=== PATIENT | female | born 1965 | race Caucasian/White ===

== ENCOUNTER 2025-08-11 10:03 | Emergency (ER) | payer OTHER, SELFPAY ==
[2025-08-11 10:06] VITALS: BP 142/94; PULSE 62; RESP 20; TEMP 36.2; O2SAT 96; BMI 39.8
--- OUTSIDE RECORDS SUMMARY | 2025-08-11 10:07 | XMS_ITS | Clinical Summary ---
Author Organization [facility] Address Formerly [facility] [place] [address] Care Team Providers Care Build And Deployment Engineer Name Role Phone Daksha Devlin NP Primary Care Provider Allergies Active Allergy Reactions Criticality Noted Date Comments Bee Sting Kit Anaphylaxis 08/30/2014 House Dust Cough 08/30/2014 Morphine Cardiac Arrest 08/30/2014 all narcotics she has ever taken Nalbuphine Cardiac Arrest 08/30/2014 Pollen Extracts Cough 08/30/2014 Diazepam Sedation 08/30/2014 would sleep for 5 days , but could arouse her Medications fexofenadine (ADALBERTO) 180 mg tabletIndications: Hayfever Take 1 tablet by mouth once daily. 0 9 Active diclofenac topical (VOLTAREN) 1 % gelIndications:Linda jeff osteoarthritis of right ankle Apply 2 g topically to affected area(s) 4 times daily. 50 g 2 Active famotidine (PEPCID) 20 mg tabletIndications: Chronic GERD Take 1 Tablet (20 mg) by mouth two times daily. 180 Tablet 2 5 Active meloxicam (Mobic) 15 mg tabletIndications: Tibialis posterior tendinitis, right,Primary osteoarthritis of right ankle,Sprain of right medial ankle joint, initial encounter,Calcanea l spur, right foot,Right ankle pain, unspecified chronicity Take 1 Tablet (15 mg) by mouth once daily. 90 Tablet 3 5 Active metoprolol tartrate (LOPRESSOR) 25 mg tabletIndications: Paroxysmal SVT (supraventricular tachycardia) (HC),Aortic root dilation TAKE THREE TABLETS BY MOUTH TWICE A DAY 540 Tablet 3 5 Active topiramate 50 mg tabletIndications: Migraine syndrome Take 1 Tablet (50 mg) by mouth two times daily. 180 Tablet 3 5 Active fluconazole (DIFLUCAN) 150 mg tabletIndications: Yeast infection Take 1 tab daily, repeat in 3 days 2 Tablet 5 Active cholestyramine-suc tyrese 4 G per scoop (QUESTRAN) 4 gram powderIndications: Bowel habit changes Mix 4 gm in liquid and take by mouth twice daily 250 g 2 5 Active Active Problems Problem Noted Date Diagnosed Date Exacerbation of asthma, unsp ecified asthma severity, unspecified whether persistent 07/03/2025 Aortic root dilation 07/17/2023 Paroxysmal SVT (supraventricular tachycardia) Wheezing 06/19/2023 Overview (06/19/2023): with very cold air Family history of breast cancer 12/11/2020 History of benign breast biopsy 12/11/2020 History of endometriosis Encounters Date Type Department Care Team Description 08/08/2025 12:17 PM CDT - 08/08/2025 11:59 PM CDT Hospital Encounter [facility] [address] [place] [address] Daksha Devlin NP Aortic root dilation 08/08/2025 Travel 07/03/2025 3:30 PM CDT Office Visit [facility] [address] [place] [address] Daksha Devlin NP Medication Management (Medication refills ); Procedure (Echo orders. ); Vaginal Discharge (Vaginal discharge and itching ) 07/03/[address] [address] Daksha Devlin NP Medication Management (cholestyramine-sucr ose 4 G per scoop (QUESTRAN) ) 07/03/2025 Travel 06/09/[address] [address] Daksha Devlin NP Form 06/09/[address] [address] Daksha Devlin NP Appointment from Last 3 Months Immunizations Immunization Administration Dates Next Due COVID-19 vaccine ([employer] 30mcg/0.3mL) P F, MDV 05/06/2021,04/15/2021 Influenza Virus, Unspecified 09/15/2016,08/30/20 13 Influenza, IIV4 10/12/2020,09/25/2018 Td (Age >=7 Years) 12/11/2023 Tdap 07/18/2016,02/01/2007 Family History Medical History Relation Name Comments Allergies Daughter 2 Asthma Daughter 2 Heart failure Father Hypertension Father Cancer Maternal Grandfather liver Heart attack Maternal Grandfather Alzheimer's disease Maternal Grandmother Cancer Maternal Grandmother abdomin al cancer Cancer-breast Mother metastasis Heart Disease Paternal Grandfather Heart attack Paternal Grandfather Brain Aneurysm Paternal Grandmother Asthma Sister 1 Diabetes Sister 1 Hypertension Sister 1 Hypertension Sister 2 Relation Name Status Comments Daughter 1 Alive Daughter 2 Alive Daughter 3 Alive Father Maternal Grandfather (Age 40) Li herlinda Cancer Maternal Grandmother (Age 72) al zheimers Mother (Age 40) Breast Can cer Paternal Grandfather (Age 45) IA Paternal Grandmother (Age 84) Br ain Aneurysm Sister 1 Alive Sister 2 Alive Social History Tobacco Use Types Packs/Day Years Used Date Smoking Tobacco: Former Cigarettes 1 20 1 989 - 2008 Smokeless Tobacco: Never Tobacco Cessation:Counseling Given: Yes Alcohol Use Standard Drinks/Week Comments Yes 0 (1 standard drink = 0.6 oz pur e alcohol) socially PHQ-2 Answer Date Recorded PHQ-2 TOTAL SCORE 0 07/03/2025 Social Connections Answer Date Recorded Do you often feel lonely or isolated from those around you? 0 07/03/2025 Financial Resource Strain Answer Date R ecorded Difficulty of Paying Living Expenses 3 07/03/2025 Difficulty of Paying Living Expenses Not on file 07/03/2025 Food Insecurity Answer Date Recorded Do you worry your food will run out before you are able to buy more? 1 07/03/2025 Transportation Needs Answer Date Record ed Does lack of transportation keep you from medica l appointments? 1 07/03/2025 Does lack of transportation keep you from work, meetings or getting things that you need? 1 07/03/2025 Housing Stability Answer Date Recorded What is your housing situation today? 1 07/03/2025 Utilities Answer Date Recorded Do you have trouble paying f or utilities (for example, heat, electricity, water, phone)? 1 07/03/2025 Comments No Sex and Gender Information Value Date Recorded Sex Assigned at Not on file Legal Sex Female 5:23 AM SENIOR RISK ANALYST Gender Identity Not on file Sexual Orientation Not on file Obstetrics History Para Term AB IAB SAB Ectopic Multiple Livin g Live Births 4 3 3 1 1 Date Outcome GA Total Labor Labor/2nd/3rd Weight Sex Type Anes PTL Mary A1 A5 Name Clin Term Term Term SAB Last Filed Vital Signs Vital Sign Reading Time Taken Comments Blood Pressure 110/74 07/03/2025 3:30 PM CDT Pulse 64 07/03/2025 3:30 PM CDT Temperature 36.9 C (98.4 F) 01/26/2024 2:31 PM SENIOR RISK ANALYST Respiratory Rate 18 09/20/2024 9:37 AM CDT Oxygen Saturation 95% 01/26/2024 2:31 PM SENIOR RISK ANALYST Inhaled Oxygen Concentration - - Weight 110.8 kg (244 lb 3.2 oz) 07/03/2025 3:30 PM CDT Height 162.6 cm (5' 4) 07/03/2025 3:30 PM CDT Body Mass Index 41.92 07/03/2025 3:30 PM CDT Plan of Treatment Upcoming Encounters Date Type Department Care Team (Late st Contact Info) Description 08/15/2025 2:00 PM CDT Appointment [address] [address] Health Maintenance Due Date Last Done Comments HIV for age 15-65 1981 Hepatitis B series for 19+ ( 1 of 3 - 19+ 3-dose series) 1985 Pneumococcal series for age 50+ (1 of 2 - PCV) 1985 Zoster (shingles) series for age 50+ (1 of 2) [address] (for lung CA) ag e 50-80 12/01/2022 12/01/2021 Mammogram for age 45-75 06/22/2024 06/22/2023, 11/30 COVID-19 vaccine series (3 - 2024- season) 2025 05/06/2021, 04/15/2021 Influenza Vaccine (#1) 2025 , 09/25/2018, 09/15/2016, Additional history exists BMI (ht and wt on same day) for age 18+ 07/03/2026 07/03/2025, 03/08/2024, 01/26/2024, Additional history exists Colonoscopy through age 75 07/25/202607/25, 07/25/2016, 07/25/2016 Depression screening for age 12+ 08/15/2026 08/15/2025, 07/03/2025, 09/29/2023, Additional history exists Lipids for age 45-75 06/19/2028 06/19/2023, 07/18/20 16 Tetanus booster 12/11/2033 12/11/2023, 06/28, 02/01/2007 RSV vaccine for adults or (1 - 1-dose 75+ series) 2041 Hepatitis C screening for ag e 18-79 Completed 06/19/2023 Pap test for age 21-65 Discontinued Procedures Procedure Name Priority Date/Time Associated Diagnosis Comments ECHO TTE COMPLETE WO CONTRAST Routine 08/08/2025 12:59 PM CDT Aortic root dilation XR MAMMO BILAT SCREENING Routine 06/22/2023 4:13 PM CDT Visit for screening mammogram LC HCV ANTIBODY RFX TO QUANT PCR Routine 06/19/2023 3:02 PM CDT Encounter for hepatitis C screening test for low risk patient LIPID PANEL W REFLEX MEASURED LDL Routine 06/19/2023 3:02 PM CDT Lipid screening CT CHEST ABDOMEN PELVIS W STAT 12/01/2021 2:53 PM SENIOR RISK ANALYST Shortness of breath Left lower quadrant abdominal pain COLONOSCOPY SCREENING Routine 07/25/2016 11:14 AM CDT Routine general medical examination at health care facility from Last 3 Months or Most Recently Relevant to Health Maintenance Results * ECHO TTE COMPLETE WO CONTRAST (08/08/2025 12:59 PM CDT) AORTIC VALVE MEAN PG 3 mmHg EJECTION FRACTION 55 % PEAK TR VELOCITY 2.3 m/s LVEDD 4.4 cm EJECTION FRACTION 55 - 60% Anatomical Region Laterality Modality Ultrasound 08/08/2025 12:2 9 PM CDT Narrative 08/08/2025 1:09 PM CDT ECHOCARDIOGRAM ELLEN LINCOLN : 1965 60 years Study Date: 08/08/2025 12:29:40 PM Gender: F BP: 110/74 mmHg Height: 162.56 cm BSA: 2.13 m Weight: 110.68 kg Tech: [facility] Referring MD: DAKSHA DEVLIN Site: [facility] Reading Location: MOBILE OP Patient Location: Outpatient. Procedure: 2D, Color Doppler and Spectral Doppler. Indication for study: Aortic root dilation Cardiac Rhythm: Normal sinus.Study quality: Good. Final Impressions: 1. Normal LV size, normal wall thickness, normal global systolic function with an estimated EF of 55 - 60%. 2. Normal diastolic function. 3. Right ventricular cavity size is normal, global systolic RV function is normal. 4. No significant valve disease detected. 5. Dilated ascending aorta, diameter of 4.3 cm (upper limit of normal for age, sex, and BSA is 3.9 cm*), Height Index 2.63. Comparison Compared to prior exam of 06/27/2024, there has been no significant change. Chamber Sizes and Function Normal left ventricular size, normal wall thickness, normal global systolic function with an estimated EF of 55 - 60%. No resting regional wall motion abnormality visualized. Left atrial size is normal. Left atrial pressure is normal. Right ventricular cavity size is normal, global systolic RV function is normal. RV wall thickness is normal. The right atrium is normal. Right atrial area is 14 cm . The pulmonary artery is of normal size and origin. The sinus of Valsalva is normal for age/sex/bsa. The ascending aorta is dilated. Valves, RV Pressures and Diastolic Function The aortic valve is normal in structure, trileaflet and sclerotic, no stenosis and trivial regurgitation. The mitral valve is sclerotic, mild mitral regurgitation. Mitral annular calcification is present. Normal diastolic function. The tricuspid valve is normal in structure, mild tricuspid regurgitation. The tricuspid regurgitant velocity is 2.3 m/s, the estimated right ventricular systolic pressure is 21 mmHg plus right atrial pressure. The pulmonic valve is normal. Trace pulmonary regurgitation. Masses, Effusion, Shunts There is no pericardial effusion. The inferior vena cava is normal sized, respiratory size variation greater than 50%. No left to right shunting was detected by limited color flow Doppler interrogation of the interatrial septum. MEASUREMENTS AND CALCULATIONS 2-D Measurements and LV Function: LVID (d) 4.4 cm LV FS% (2D) 31 % LVID (s) 3.0 cm LVOT diameter 2.1 cm IVS (d) 0.8 cm HR 70 bpm LVPW (d) 0.9 cm LA Vol index 26 ml/m2 Ao Sinus 3.4 cm RA area 14 cm Ao Sinus ULN 3.8 cm * RV Basal Diam 3.2 cm Asc Ao 4.3 cm RV Mid Diam 2.7 cm Asc Ao ULN 3.9 cm * * Input BSA outside of range, reported values correspond to BSA = 1.9 Diastology: Mitral Tissue Doppler Pulmonary veins E Peak 0.8 m/s e', Septum 0.07 m/s Pulm s 62.6 cm/s A Peak 0.8 m/s e', Lateral 0.15 m/s Pulm d 60.6 cm/s E/A 1.0 E/e' Average 7.44 Pulm s/d ratio 1.03 DT 209 msec Aortic Valve: Vmax 1.2 m/s HORACIO (V) 3.13 cm VTI 0.26 m HORACIO (I) 3.01 cm LVOT V max 1.1 m/s Max PG 5 mmHg LVOT VTI 0.24 m Mean PG 3 mmHg SV 79 ml Dim Index 0.90 SV index 37 ml/m CO 5.5 l/min CI 2.6 l/min/m Mitral Valve: MVA 3.6 cm MV P 1/2 61 msec MV Mean G 1 mmHg Tricuspid Valve and estimated PA pressures: TR Vmax 2.3 m/s TAPSE 1.8 cm TR maxG 21 mmHg Pulmonic Valve: PV Vmax 0.7 m/s PV AT 114 msec . This study was interpreted by an [facility] accredited facility. Final Procedure Note Yaya Jacobsen MD - 08/08/2025 ECHOCARDIOGRAM ELLEN LINCOLN : 1965 60 years Study Date: 08/08/2025 12:29:40 PM Gender: F BP: 110/74 mmHg Height: 162.56 cm BSA: 2.13 m Weight: 110.68 kg Tech: [facility] MD: DAKSHA DEVLIN Site: [facility] Reading Location: MOBILE OP Patient Location: Outpatient. Procedure: 2D, Color Doppler and Spectral Doppler. Indication for study: Aortic root dilation Cardiac Rhythm: Normal sinus.Study quality: Good. Final Impressions: 1. Normal LV size, normal wall thickness, normal global systolic functionwith an estimated EF of 55 - 60%. 2. Normal diastolic function. 3. Right ventricular cavity size is normal, global systolic RV functionis normal. 4. No significant valve disease detected. 5. Dilated ascending aorta, diameter of 4.3 cm (upper limit of normal forage, sex, and BSA is 3.9 cm*), Height Index 2.63. Comparison Compared to prior exam of 06/27/2024, there has been no significantchange. Chamber Sizes and Function Normal left ventricular size, normal wall thickness, normal globalsystolic function with an estimated EF of 55 - 60%. No resting regionalwall motion abnormality visualized. Left atrial size is normal. Leftatrial pressure is normal. Right ventricular cavity size is normal, globalsystolic RV function is normal. RV wall thickness is normal. The rightatrium is normal. Right atrial area is 14 cm . The pulmonary artery is ofnormal size and origin. The sinus of Valsalva is normal for age/sex/bsa.The ascending aorta is dilated. Valves, RV Pressures and Diastolic Function The aortic valve is normal in structure, trileaflet and sclerotic, nostenosis and trivial regurgitation. The mitral valve is sclerotic, mildmitral regurgitation. Mitral annular calcification is present. Normaldiastolic function. The tricuspid valve is normal in structure, mildtricuspid regurgitation. The tricuspid regurgitant velocity is 2.3 m/s,the estimated right ventricular systolic pressure is 21 mmHg plus rightatrial pressure. The pulmonic valve is normal. Trace pulmonaryregurgitation. Masses, Effusion, Shunts There is no pericardial effusion. The inferior vena cava is normal sized,respiratory size variation greater than 50%. No left to right shunting wasdetected by limited color flow Doppler interrogation of the interatrialseptum. MEASUREMENTS AND CALCULATIONS 2-D Measurements and LV Function: LVID (d) 4.4 cm LV FS% (2D) 31% LVID (s) 3.0 cm LVOT diameter2.1 cm IVS (d) 0.8 cm HR 70bpm LVPW (d) 0.9 cm LA Vol index 26ml/m2 Ao Sinus 3.4 cm RA area 14cm Ao Sinus ULN 3.8 cm * RV Basal Diam3.2 cm Asc Ao 4.3 cm RV Mid Diam2.7 cm Asc Ao ULN 3.9 cm * * Input BSA outside of range, reported values correspond to BSA = 1.9 Diastology: Mitral Tissue Doppler Pulmonary veins E Peak 0.8 m/s e', Septum 0.07 m/s Pulm s 62.6 cm/s A Peak 0.8 m/s e', Lateral 0.15 m/s Pulm d 60.6 cm/s E/A 1.0 E/e' Average 7.44 Pulm s/d ratio 1.03 DT 209 msec Aortic Valve: Vmax 1.2 m/s HORACIO (V) 3.13 cm VTI 0.26 m HORACIO (I) 3.01 cm LVOT V max 1.1 m/s Max PG 5 mmHg LVOT VTI 0.24 m Mean PG 3 mmHg SV 79 ml Dim Index 0.90 SV index 37 ml/m CO 5.5 l/min CI 2.6 l/min/m Mitral Valve: MVA 3.6 cm MV P 1/2 61 msec MV Mean G 1 mmHg Tricuspid Valve and estimated PA pressures: TR Vmax 2.3 m/s TAPSE 1.8 cm TR maxG 21 mmHg Pulmonic Valve: PV Vmax 0.7 m/s PV AT 114 msec . This study was interpreted by an [facility] accredited facility. Final Daksha Devlin NP ECHO ORD Final Result * XR MAMMO BILAT SCREENING (06/22/2023 4:13 PM CDT) Anatomical Region Laterality Modality BREASTS, Breast Left, Breast Right Bilateral Mammography Impressions 06/23/2023 6:39 AM CDT There is no radiographic evidence for malignancy. Recommend annual mammograms. MAMMOGRAM ASSESSMENT: ACR 2 Benign PATIENTS: You will also receive a letter with your examination results in an easy to read format. If you have questions about your results, please contact your referring provider. Narrative 06/23/2023 6:39 AM CDT For Patients: As a result of the Century Cures Act, medical imaging exams and procedure reports are released immediately into your electronic medical record. You may view this report before your referring provider. If you have questions, please contact your health care provider. XR MAMMO BILAT SCREENING [[id number]] CLINICAL HISTORY: This is an asymptomatic 58 y.o. patient. INDICATION FOR EXAM: Mammogram Screening. TECHNIQUE: CC & MLO views were obtained. This study was evaluated with the assistance of Computer-Aided Detection. COMPARISON FILMS: Yes 11/30/18 FINDINGS: The breasts are almost entirely fatty. No suspicious masses or microcalcifications. There is a benign appearing asymmetry of both breasts. Vanessa Minor NP MAMMO Final Result * LC HCV ANTIBODY RFX TO QUANT PCR (06/19/2023 3:02 PM CDT) HCV Ab Non Reactive Non Reactive 06/22/2023 12:08 PM CDT [facility] ([facility] Blood BLOOD SPECIMEN / Unknown Venipuncture / Unknown 06/19/2023 3:02 PM CDT 06/19/2023 3:03 PM CDT Narrative [facility] - 06/22/2023 12:08 PM CDT Performed at: [address] [id number] Clinical Allergist: Winston Coffey MD, Phone: [phone] Vanessa Minor NP LABORATORY Final Result [facility] ([facility]) [facility] [place] [address], * (ABNORMAL) LIPID PANEL W REFLEX MEASURED LDL (06/19/2023 3:02 PM CDT) [facility] CHOLESTEROL,TOTAL 227(H) 100 - 199 mg/dL 06/19/2023 4:16 PM T [facility] TRIGLYCERIDES 253(H) <150 mg/dL 06/19/2023 4:16 PM T [facility] HDL CHOLESTEROL 49 >40 mg/dL 4:16 PM T [facility] NON-HDL CHOLESTEROL 178(H) <145 mg/dl 06/19/2023 4:16 PM [facility] CHOL/HDL RATIO 4.63(H) <4.50 06/19/2023 4:16 PM [facility] LDL CHOLESTEROL 127 <=130 mg/dL 06/19/2023 4:16 PM [facility] VLDL CHOLESTEROL 51(H) <=30 mg/dL 06/19/2023 4:16 PM T [facility] PROVIDER ORDERED STATUS RANDOM 06/19/2023 4:16 PM T [facility] Blood BLOOD SPECIMEN / Unknown Venipuncture / Unknown 06/19/2023 3:02 PM CDT 06/19/2023 3:03 PM CDT Vanesas Minor NP CHEMISTRY Final Result [facility] [address] [place] [address] * CT CHEST ABDOMEN PELVIS W (12/01/2021 2:53 PM SENIOR RISK ANALYST) Anatomical Region Laterality Modality Abdomen, Pelvis, AORTA, LIVER, SPLEEN Computed Tomography 12/01/2021 3:20 PM SENIOR RISK ANALYST Impressions 12/01/2021 3:20 PM SENIOR RISK ANALYST No significant CT abnormality in the chest, abdomen, or pelvis. No findings to explain the cause of the patient`s symptoms. Please note that all CT scans at this facility use dose modulation, iterative reconstruction, and/or weight-based dosing when appropriate to reduce radiation dose to as low as reasonably achievable. Dictated by Harvey Soler MD @ 12/01/2021 3:20:31 PM (Electronically Signed) Narrative 12/01/2021 3:20 PM SENIOR RISK ANALYST For Patients: As a result of the Cures Act, medical imaging exams and procedure reports are released immediately into your electronic medical record. You may view this report before your referring provider. If you have questions, please contact your health care provider. INDICATION: Shortness of breath and left lower abdominal pain. TECHNIQUE: CT chest, abdomen and pelvis acquired with 100 mL of Omnipaque 350 IV contrast. COMPARISON: CT abdomen and pelvis from 11/11/2019 and 07/03/2017 FINDINGS: CHEST: Cardiovascular structures: Heart size is normal. Thoracic aorta and main pulmonary artery are normal in caliber. Mediastinum and hue: No mass or adenopathy. Lungs and pleura: Lungs and pleural spaces are clear. No suspicious nodules, infiltrates, or effusions. Chest wall and axilla: No mass or adenopathy. Bones: No suspicious bone lesions. Unremarkable for age. ABDOMEN AND PELVIS: Liver: Unremarkable. Gallbladder and bile ducts: Surgically absent gallbladder. Normal caliber bile ducts. Pancreas: Unremarkable. Spleen: Unremarkable. Small adjacent splenule. Adrenal glands: Unremarkable. Kidneys: Symmetric cortical enhancement. Calcification in the interpolar region of the left kidney is compatible with a nonobstructing stone. GI tract: Multiple diverticula project from the colon. No findings to suggest diverticulitis. Vascular structures: Unremarkable. Lymph nodes: Unremarkable. Miscellaneous: Unremarkable. No free air or significant free fluid. Pelvic Organs: Surgically absent uterus. Normal appearance of the bladder. Bones: No suspicious bone lesions. Unremarkable for age. Procedure Note Harvey Soler MD - 12/01/2021 For Patients: As a result of the Century Cures Act, medical imagingexams and procedure reports are released immediately into your electronicmedical record. You may view this report before your referring provider.If you have questions, please contact your health care provider. INDICATION: Shortness of breath and left lower abdominal pain. TECHNIQUE: CT chest, abdomen and pelvis acquired with 100 mL of Omnipaque 350 IVcontrast. COMPARISON: CT abdomen and pelvis from 11/11/2019 and 07/03/2017 FINDINGS: CHEST: Cardiovascular structures: Heart size is normal. Thoracic aorta and mainpulmonary artery are normal in caliber. Mediastinum and hue: No mass or adenopathy. Lungs and pleura: Lungs and pleural spaces are clear. No suspiciousnodules, infiltrates, or effusions. Chest wall and axilla: No mass or adenopathy. Bones: No suspicious bone lesions. Unremarkable for age. ABDOMEN AND PELVIS: Liver: Unremarkable. Gallbladder and bile ducts: Surgically absent gallbladder. Normal caliberbile ducts. Pancreas: Unremarkable. Spleen: Unremarkable. Small adjacent splenule. Adrenal glands: Unremarkable. Kidneys: Symmetric cortical enhancement. Calcification in the interpolarregion of the left kidney is compatible with a nonobstructing stone. GI tract: Multiple diverticula project from the colon. No findings tosuggest diverticulitis. Vascular structures: Unremarkable. Lymph nodes: Unremarkable. Miscellaneous: Unremarkable. No free air or significant free fluid. Pelvic Organs: Surgically absent uterus. Normal appearance of the bladder. Bones: No suspicious bone lesions. Unremarkable for age. IMPRESSION: No significant CT abnormality in the chest, abdomen, or pelvis. Nofindings to explain the cause of the patient`s symptoms. Please note that all CT scans at this facility use dose modulation,iterative reconstruction, and/or weight-based dosing when appropriate toreduce radiation dose to as low as reasonably achievable. Dictated by Harvey Soler MD @ 12/01/2021 3:20:31 PM (Electronically Signed) Kate Belcher NP CT Final Result * COLONOSCOPY SCREENING (07/25/2016 11:14 AM CDT) Stormy Zimmerman MD GI PROCEDURE ORD Final R esult from Last 3 Months or Most Recently Relevant to Health Maintenance Insurance [employer] Care Teams Build And Deployment Engineer Relationship Specialty Start Date End Date Daksha Devlin NP [address] [place] [address] ANGI Mendez [id number] PCP - General Nurse Practitioner - Family 10/01/21
--- NOTE | 2025-08-11 10:59 | ED.ABDPAIN ---
HPI - Abdominal Pain General Date Seen: 08/11/25 Chief Complaint: Abdominal Pain Stated Complaint: Diverticulitis Time Seen by Provider: 08/11/25 10:18 Source: patient Mode of arrival: ambulatory Limitations: no limitations History of Present Illness HPI narrative: Patient is a 60-year-old female presenting to the emergency department for concerns of diverticulitis. She states about 2 weeks ago she started having some bilateral low back pain. She comes just a muscle strain but then she was any small fender Snyder over the next few days she have was no oozing the pain more. The pain now wraps to her abdomen bilaterally. She is concerned about diverticulitis because she has had diverticulitis 5 previous times over the past few years and she states every single time the pain starts exact rate is same. She states she always get back pain 1st and then eventually the lower abdominal pain. She denies a vomiting and states she has been watching her diet very closely due to her frequent diverticulitis. Does states she had some watery diarrhea which she states is also consistent with her previous diverticulitis. She states this is the 1st episode she has had almost a year though. Denies fevers, chills, chest pain, shortness of breath, lightheadedness, dizziness, weakness, numbness, vision changes. Does states she is having a mild headache. Admits having headaches like this before. She states her last colonoscopy was when she turned 51 and all of her episodes of diverticulitis have occurred after that initial colonoscopy. States that the time she was told her colonoscopy looked normal. Related Data Home Medications ?Medication ?Instructions ?Recorded ?Confirmed famotidine 20 mg tablet 20 mg PO BID 08/11/25 08/11/25 meloxicam 15 mg tablet 15 mg PO DAILY 08/11/25 08/11/25 metoprolol tartrate 25 mg tablet 75 mg PO BID 08/11/25 08/11/25 topiramate 50 mg tablet 50 mg PO BID 08/11/25 08/11/25 Previous Rx's ?Medication ?Instructions ?Recorded amoxicillin 875 mg-potassium 1 tab PO Q8H #15 tabs 08/11/25 clavulanate 125 mg tablet fluconazole 150 mg tablet 150 mg PO Q3D 3 doses #3 tabs 08/11/25 Allergies Allergy/AdvReac Type Severity Reaction Status Date / Time narcotics Allergy Severe Uncoded 08/11/25 10:13 Review of Systems Status of ROS Reports: 10 or more systems reviewed and unremarkable except as noted in History and below [facility] Social History Smoking Status: Former smoker Do you use any of these nicotine containing products: None Second hand tobacco smoke exposure: Yes How often do you have a drink containing alcohol: monthly or less How often do you have six or more drinks on one occasion: Never AUDIT-C Alcohol total score: 1 Non-prescribed substance use: denies use service: No Exam Narrative: Exam Narrative: Const: Well-nourished, Well-developed, in mild distress Eyes: PERRL, no conjunctival injection, and symmetrical lids HENT: Atraumatic external nose and ears. Moist mucous membranes. Neck: Symmetric, trachea midline, No thyromegaly. CVS: RRR, No murmurs or gallops. Peripheral pulses 2+ and equal in all extremities RESP: Unlabored respiratory effort. Clear to auscultation bilaterally. GI: Lower abdominal tenderness, Nondistended, No rebound or guarding. MSK:Extremities w/o deformity, Normal Active ROM Skin: Warm, Dry. No rashes or lesions. Neuro: Normal Muscle tone, No focal neurological deficits. Psych: Awake, Alert, & Oriented x3. Appropriate mood and affect. Const: Vital Signs, click to edit/add: Vital Signs - 24 hr 08/11/25 10:06 Temperature 97.2 F L Pulse Rate [Pulse Oximeter] 62 Respiratory Rate 20 Blood Pressure [Ri ght Upper Arm] 142/94 H Pulse Oximetry 96 Oxygen Delivery Me thod Room Air Course Vital Signs Vital signs: Initial Vital Signs Temperature 97.2 F L 08/11/25 10:06 Temperature Source Temporal Artery Scan 08/11/25 10:06 Pulse Rate 62 08/11/25 10:06 Respiratory Rate 20 08/11/25 10:06 Blood Pressure 142/94 H 08/11/25 10:06 Blood Pressure Mean 110 H 08/11/25 10:06 Blood Pressure Position Sitting 08/11/25 10:06 Pulse Oximetry 96 08/11/25 10:06 Oxygen Delivery Method Room Air 08/11/25 10:06 Vital Signs Temperature 97.2 F L 08/11/25 10:06 Pulse Rate 62 08/11/25 10:06 Respiratory Rate 20 08/11/25 10:06 Blood Pressure 142/94 H 08/11/25 10:06 Pulse Oximetry 96 08/11/25 10:06 Oxygen Delivery Method Room Air 08/11/25 10:06 Temperature 97.2 F L 08/11/25 10:06 Pulse Rate 62 08/11/25 10:06 Respiratory Rate 20 08/11/25 10:06 Blood Pressure 142/94 H 08/11/25 10:06 Pulse Oximetry 96 08/11/25 10:06 Oxygen Delivery Method Room Air 08/11/25 10:06 Medications Administered Medications: Discontinued Medications Generic Name Dose Route Start Last Admin Trade Name Freq PRN Reason Stop Dose Admin Ketorolac Tromethamine 15 mg 08/11/25 10:54 08/11/25 11:25 Ketorolac 15 Mg/Ml Inj IVP 08/11/25 10:55 15 mg ONCE ONE Administration Ondansetron HCl 4 mg 08/11/25 10:54 08/11/25 11:23 Ondansetron 2 Mg/Ml Inj IVP 08/11/25 10:55 4 mg ONCE ONE Administration MDM - Abdominal Pain MDM Narrative Medical decision making narrative: Patient is a 60-year-old female presenting for abdominal pain and back pain. She does not have a gallbladder or appendix. This seems very likely to be diverticulitis again as she reiterates that the symptoms are exactly the same as all of her previous episodes of diverticulitis. She does state she has been having bowel movements but has not had a formed stool since before her pain started. With the bowel movements an SBO seems unlikely. She is not having any abdominal distension. Her spoke to her about imaging. I explained that without CT scan I cannot say for certain that there was not something more serious going on but does sound based on the story that she likely has diverticulitis again. She states she thinks she has had up to [address] scans due to the diverticulitis and previous endometriosis and she is concerned about the cancer risk. States colon cancer runs in the family. I spoke to her about possibly just doing lab work and if lab work looks normal to treat her for diverticulitis and she does states she would prefer this. I then again explained that I cannot definitively say there is nothing worse going on and that she will need to have very close return precautions if symptoms worsen. She states she understands and agrees with this plan. Patient's lab work returned showing no acute concerning abnormalities. At this time she is doing well I do believe she is safe for discharge. Will discharge home Augmentin for diverticulitis. Considering she continues to have a yeast infection I will prescribe fluconazole again and give her 3 total doses since that a to. She declined topical antifungals. I gave her strict return precautions informed her she needs to set up a colonoscopy as soon as possible. She is agreeable to this plan. Lab Data Labs: Lab Results 08/11/25 Range/Units 11:10 WBC 4.60 (4.50-11.00) K/uL RBC 4.70 (4.00-5.20) m/uL Hgb 14.1 (12.0-16.0) gm/dL Hct 42.5 (33.0-51.0) % MCV 90 (80-100) fL MCH 30 (26-34) pg MCHC 33 (32-36) gm/dL RDW Coeff of Kar 12.5 (11.5-15.5) % Plt Count 248 (140-440) K/uL Neut % (Auto) 55.9 (42.0-72.0) % Lymph % (Auto) 30.0 (20-44) % [place] % (Auto) 9.1 (0.0-11.0) % Eos % (Auto) 3.9 (0.0-7.0) % Baso % (Auto) 1.1 (0.0-3.0) % Neut # (Auto) 2.57 (1.7-7.0) K/uL Lymph # (Auto) 1.38 (0.90-2.90) K/uL [place] # (Auto) 0.40 (0.00-0.90) K/UL Eos # (Auto) 0.18 (0.00-0.50) K/uL Baso # (Auto) 0.05 (0.00-0.30) K/uL Abs Immat Gran (auto) 0.00 (0.00-0.30) K/uL Imm/Tot Granulo (auto) 0.0 % Sodium 140 (135-149) mmol/L Potassium 4.0 (3.6-5.1) mmol/L Chloride 109 (96-114) mmol/L Carbon Dioxide 24 (20-32) mmol/L Anion Gap 7 (7-15) mEq/L BUN 13 (7-30) mg/dL Creatinine 0.8 (0.5-1.5) mg/dL Estimated Creat Clear 65.38 Estimated GFR 85 ml/min Glucose 109 (60-115) mg/dL Calcium 8.9 (8.4-10.6) mg/dL Total Bilirubin 0.4 (0.1-1.5) mg/dL AST 22 (12-35) U/L ALT 15 (4-35) U/L Alkaline Phosphatase 65 (40-150) U/L Total Protein 7.4 (6.0-8.3) g/dL Albumin 4.2 (3.3-5.0) g/dL Lipase 74 (23-300) U/L Urine Color Yellow (Yellow) Urine Appearance Clear (Clear) Urine pH 7.5 (5.0-8.5) Ur Specific [place] 1.015 (1.000-1.030) Urine Protein Negative (Negative) Urine Glucose (UA) Negative (Negative) Urine Ketones Negative (Negative) Urine Blood Trace-intact A (Negative) Urine Nitrite Negative (Negative) Urine Bilirubin Negative (Negative) Urine Urobilinogen 0.2 (0.2-1.0) Ur Leukocyte Esterase Negative (Negative) Urine RBC 0-2 (0-2) Urine WBC 0-2 (0-5) Ur Squamous Epith Cells Few (None-Few) Urine Bacteria Few A (None) SARS-CoV-2 (PCR) Negative SARS-CoV-2 (Negative) Influenza Type A (PCR) Negative PCR FLU A (Negative) Influenza Type B (PCR) Negative PCR FLU B (Negative) RSV (PCR) Negative PCR RSV (Negative) Discharge Plan Discharge Clinical Impression: Diverticulitis Patient Disposition: Home, Self-Care Condition: Stable Instructions: Diverticulitis (DC) Additional Instructions: It is very important that she trying get a colonoscopy as soon as possible. Also since we do not do any imaging today I highly recommend you return to the emergency department for any worsening symptoms or any other concerning symptoms. For yeast infection I will prescribe fluconazole 150 mg p.o. every 3 days for total 3 doses. Augmentin given for your diverticulitis Prescriptions: New amoxicillin-pot clavulanate 875-125 mg tablet 1 tab PO Q8H Qty: 15 0RF fluconazole 150 mg tablet 150 mg PO Q3D Qty: 3 0RF No Action meloxicam 15 mg tablet 15 mg PO DAILY famotidine 20 mg tablet 20 mg PO BID metoprolol tartrate 25 mg tablet 75 mg PO BID topiramate 50 mg tablet 50 mg PO BID Follow Up/Referrals: Provider,Not a Local [Primary Care Provider, Family Practice] Stand Alone Forms: [facility] Info Instructions
[2025-08-11] MEDS: ONDANSETRON 2 MG/ML inj 4 MG IVP (11:23)
[2025-08-11 11:26] LABS: Appearance Urine Clear (Clear)
[2025-08-11 11:34] LABS: Hematocrit* 42.5 % (33.0-51.0); Hemoglobin* 14.1 gm/dL (12.0-16.0); Immature Granulocytes Abs Auto 0.00 K/uL (0.00-0.30); Immature Granulocytes Pct Auto 0.0 %; Lymphocytes Absolute Auto 1.38 K/uL (0.90-2.90); Mean Corpuscular HGB Conc 33 gm/dL (32-36); Mean Corpuscular Hemoglobin 30 pg (26-34); Mean Corpuscular Volume 90 fL (80-100); RDW Coefficient of Variation % 12.5 % (11.5-15.5); Red Blood Count* 4.70 m/uL (4.00-5.20); White Blood Count* 4.60 K/uL (4.50-11.00)
[2025-08-11 11:37] LABS: Slide Review Reflex No
[2025-08-11 11:42] LABS: Chloride* 109 mmol/L (96-114)
[2025-08-11 11:43] LABS: Albumin* 4.2 g/dL (3.3-5.0); Potassium* 4.0 mmol/L (3.6-5.1); Sodium* 140 mmol/L (135-149)
[2025-08-11 11:45] LABS: Blood Urea Nitrogen* 13 mg/dL (7-30); Creatinine* 0.8 mg/dL (0.5-1.5); Est. Creatinine Clearance* 65.38; Estimated Glomerular Filt Rate 85 ml/min
[2025-08-11 11:46] LABS: Alanine Aminotransferase* 15 U/L (4-35); Alkaline Phosphatase* 65 U/L (40-150); Anion Gap 7 mEq/L (7-15); Aspartate Amino Transferase* 22 U/L (12-35); Bilirubin Total* 0.4 mg/dL (0.1-1.5); Calcium* 8.9 mg/dL (8.4-10.6); Carbon Dioxide* 24 mmol/L (20-32); Glucose* 109 mg/dL (60-115); Total Protein* 7.4 g/dL (6.0-8.3)
[2025-08-11 12:02] LABS: PCR FLU A Negative PCR FLU A (Negative); PCR FLU B Negative PCR FLU B (Negative); PCR RSV Negative PCR RSV (Negative); SARS PCR* Negative SARS-CoV-2 (Negative)
== END 2025-08-11 12:31 | disposition home or self-care (01) ==
PROVIDERS: Emergency Provider Student in an Organized Health Care Education/Training Program
DX: K57.32 Diverticulitis of large intestine without perforation or abscess without bleeding (principal)
CPT/HCPCS: 36415; 80053; 81001; 83690; 85025; 87086; 87631; 96374; 96375; 99284; J1885; J2405